=== PATIENT | female | born 1975 | race Caucasian/White ===

== ENCOUNTER 2017-04-12 11:48 | Emergency (ER) | payer MEDICAID ==
[~2017-04-12] VITALS: Ht 162.6 cm; Wt 78.0 kg
[2017-04-12 12:21] VITALS: Ht 162.6 cm; Wt 78.0 kg
[2017-04-12 17:39] VITALS: BP 125/68
== END 2017-04-12 17:39 | disposition home or self-care (01) ==
LOC: ED 11:48
DX: S29.011A Strain of muscle and tendon of front wall of thorax, initial encounter (principal); M94.0 Chondrocostal junction syndrome [Tietze]; X58.XXXA Exposure to other specified factors, initial encounter; Y93.89 Activity, other specified; Y99.8 Other external cause status; Y92.89 Other specified places as the place of occurrence of the external cause
CPT/HCPCS: J1885

== ENCOUNTER 2017-10-26 15:07 | Emergency (ER) | payer OTHER ==
[~2017-10-26] VITALS: Ht 162.6 cm; Wt 76.2 kg
[2017-10-26 15:20] VITALS: Ht 162.6 cm; Wt 76.2 kg
[2017-10-26 16:14] LABS: microscopic required? NO
[2017-10-26 16:29] LABS: BASOPHIL % 0.7 % (0-2)
[2017-10-26 16:30] LABS: UA SPECIFIC GRAVITY <=1.005 (1.005-1.035); urine erythrocyte NEGATIVE (NEGATIVE)
[2017-10-26 16:41] LABS: PLATELET COUNT 433 x10^3mcL (130-400); RED CELL DISTRIBUTION WIDTH 19.9 % (11.5-14.5)
[2017-10-26 16:54] LABS: CALCIUM 8.7 mg/dL (8.5-10.1); CARBON DIOXIDE 26.7 mmol/L (21-32); CHLORIDE SERUM 105 mmol/L (98-107); CREATININE SERUM 0.6 mg/dL (0.6-1.0); GFR1 > 60 mL/min; GLUCOSE SERUM 98 mg/dL (74-106); SODIUM SERUM 137 mmol/L (136-145)
[2017-10-26 16:58] LABS: ALBUMIN 3.4 g/dL (3.4-5.0); ALKALINE PHOSPHATASE 76 U/L (46-116); ALT/SGPT 36 U/L (14-59); AST/SGOT 23 U/L (15-37); BILIRUBIN TOTAL 0.18 mg/dL (0.20-1.00); LIPASE 193 IU/L (73-393); TOTAL PROTEIN, SERUM 7.2 g/dL (6.4-8.2)
[2017-10-26 18:03] VITALS: BP 114/74
== END 2017-10-26 18:03 | disposition home or self-care (01) ==
LOC: ED 15:07
PROVIDERS: Emergency Medicine
DX: K29.70 Gastritis, unspecified, without bleeding (principal); J45.909 Unspecified asthma, uncomplicated; R35.0 Frequency of micturition
CPT/HCPCS: C9113; J2270; J2405; J7030; Q0092